=== PATIENT | female | born 1985 | race American Indian/Alaskan Native ===

== ENCOUNTER 2018-05-22 12:51 | Outpatient (CLI) | payer OTHER ==
[2018-05-22] MEDS ORDERED: LACTATED RINGERS 0 ML ONE (13:45)
[2018-05-22 14:12] LABS: Basophils % (Auto) 0.7 % (0.0-1.8); Eosinophils # (Auto) 0.1 K/mm3 (0.0-0.4); Eosinophils % (Auto) 1.8 % (0.0-4.3); Lymphocytes # (Auto) 1.5 K/mm3 (1.2-5.4); Lymphocytes % (Auto) 22.7 % (13.4-35.0); Mean Corpuscular HGB Conc 34 % (30-34); Mean Corpuscular Volume 94 fl (79-97); Monocytes # (Auto) 0.6 K/mm3 (0.0-0.8); Monocytes % (Auto) 9.8 % (0.0-7.3); Platelet Count 251 K/mm3 (140-440); Red Blood Count 4.06 M/mm3 (3.65-5.03); Red Cell Distribution Width 13.3 % (13.2-15.2)
[2018-05-22 14:21] LABS: INR 0.89 (0.87-1.13)
[2018-05-22 14:22] LABS: Partial Thromboplastin Time 28.7 Sec. (24.2-36.6)
--- NOTE | 2018-05-22 16:42 | Ultrasound Report ---
FINAL REPORT EXAM: US OB LIMITED HISTORY: placenta scan TECHNIQUE: Transabdominal OB ultrasound. PRIORS: None currently available. FINDINGS: Single intrauterine . Presentation: Cephalic. Placenta: Anterior and grade 1. No previa. No abruption. heart rate: 145 BPM. IMPRESSION: Single live intrauterine .
[2018-05-22 16:50] VITALS: BP 121/71
== END 2018-05-22 17:10 | disposition home or self-care (01) ==
LOC: TRG 12:51 → LD 12:52 → TRG 17:10
PROVIDERS: ATTEND Obstetrics & Gynecology
DX: O9A.213 Injury, poisoning and certain other consequences of external causes complicating pregnancy, third trimester (principal); Z3A.34 34 weeks gestation of pregnancy; X58.XXXA Exposure to other specified factors, initial encounter; Y93.89 Activity, other specified; Y92.89 Other specified places as the place of occurrence of the external cause; Y99.8 Other external cause status
CPT/HCPCS: 36415; 59025; 76815; 85025; 85610; 85730; J7120